=== PATIENT | female | born 1995 | race Caucasian/White ===

== ENCOUNTER 2021-05-29 18:45 | Emergency (ER) | payer OTHER ==
[~2021-05-29] VITALS: Ht 162 cm; Wt 70.0 kg
[2021-05-29 18:48] VITALS: BP 124/111
[2021-05-29] MEDS ORDERED: FAMOTIDINE 20MG/2ML IV (PEPCID) IVP STA (19:03)
[2021-05-29] MEDS ORDERED: ONDANSETRON 4 MG/2 ML (SDV) Z0FRAN IVP STA ×2 (19:03→20:55)
[2021-05-29] MEDS ORDERED: NS IV 1000 ML 1,000 ML IV STA (19:03)
--- NOTE | 2021-05-29 19:10 | ED General ---
General Chief Complaint: OB < 20 WEEKS Stated Complaint: VOMITING 10 WKS PREG Nursing Triage Note: Pt c/o n/v x few weeks and abd pain. Pt is 10weeks . Denies feeling dizzy/lightheaded or vaginal bleeding/discharge. Source of Information: Patient History of Present Illness Date Seen by Provider: May 29, 2021 Time Seen by Provider: 18:48 Initial Comments 26-year-old female presenting with complaints of epigastric pain and nausea and vomiting for the last few weeks. She states that she is 10 weeks and G1, P0. She just started seeing Dr. Hernandez with women[facility] out of [facility]. They prescribed Bonjesta for nausea and vomiting and she has been taking Pepcid AC. She states when she can keep the Pepcid AC down at does control her symptoms but she cannot always keep the Pepcid AC down. She did have issues with heartburn and reflux prior to getting . She denies feeling dizzy, lightheadedness, vaginal bleeding, vaginal discharge, pain with urination, diarrhea, fever, chills. She states that she called the on-call doctor for the OB group and. Said they could not really do anything else for her over the phone and if she was having more issues she would have to go to the emergency department in case she was dehydrated. Timing/Duration: Other (last few weeks but she felt it was worse in last 24 hours) Modifying Factors: worse with Eating Associated Systoms: No Chest Pain, No Cough, No Diaphoresis, No Fever/Chills, No Headaches, No Loss of Appetite, No Malaise; Nausea/Vomiting; No Rash, No Seizure, No Shortness of Air, No Syncope; Weakness Allergies and Home Medications Allergies Coded Allergies: No Known Drug Allergies (Unverified , 05/29/21) Patient Home Medication List Home Medication List Reviewed: Yes Review of Systems Review of Systems Constitutional: No chills, No dizziness, No fever, No malaise; weakness EENTM: no symptoms reported Respiratory: no symptoms reported Cardiovascular: no symptoms reported Gastrointestinal: see HPI Genitourinary: No dysuria, No frequency, No hematuria : Yes Expected Date of Delivery: Dec 20, 2021 Musculoskeletal: no symptoms reported Skin: no symptoms reported Psychiatric/Neurological: Anxiety Past Ywrwnas-Skvoet-Ztnfsa Hx Patient Social History Tobacco Use?: No Use of E-Cig and/or Vaping dev: No Substance use?: No Alcohol Use?: No Past Medical History Surgeries: Yes (Oral surgery) Respiratory: No Cardiac: No Neurological: No : Yes Expected Date of Delivery: Dec 20, 2021 Reproductive Disorders: No Genitourinary: No Gastrointestinal: No Musculoskeletal: No Endocrine: No HEENT: No Psychosocial: No Physical Exam Vital Signs Vital Signs - First Documented 05/29/21 18:48 Temp 36.8 Pulse 158 Resp 18 B/P (MAP) 124/111 (115) Pulse Ox 97 O2 Delivery Room Air Capillary Refill : Less Than 3 Seconds Height, Weight, BMI Height: '" Weight: lbs. oz. kg; 26.00 BMI Method: General Appearance: No Apparent Distress, Anxious HEENT: PERRL/EOMI, Pharynx Normal Neck: Full Range of Motion, Normal Inspection, Non Tender, Supple Respiratory: Chest Non Tender, Lungs Clear, Normal Breath Sounds, No Accessory Muscle Use, No Respiratory Distress Cardiovascular: Normal Peripheral Pulses, Tachycardia Gastrointestinal: Normal Bowel Sounds, No Pulsatile Mass, Soft; No Distended, No Guarding, No Rebound; Tenderness (epigastric) Rectal: Deferred Extremity: Normal Capillary Refill, Normal Inspection, No Pedal Edema Neurologic/Psychiatric: Alert, Oriented x3, cafe operator II-XII Norm as Tested Skin: Normal Color, Warm/Dry Progress/Results/Core Measures Suspected Sepsis SIRS Temperature: Pulse: 158 Respiratory Rate: 18 Laboratory Tests 05/29/21 19:10: White Blood Count 12.0H Blood Pressure 124 /111 Mean: 115 Laboratory Tests 05/29/21 19:10: Creatinine 0.46L, Platelet Count 337, Total Bilirubin 0.6 Results/Orders Lab Results Laboratory Tests Test 05/29/21 19:10 05/29/21 19:45 Range/Units White Blood Count 12.0 H 4.3-11.0 10^3/uL Red Blood Count 5.41 H 3.80-5.11 10^6/uL Hemoglobin 15.2 11.5-16.0 g/dL Hematocrit 42 35-52 % Mean Corpuscular Volume 78 L 80-99 fL Mean Corpuscular Hemoglobin 28 25-34 pg Mean Corpuscular Hemoglobin Concent 36 32-36 g/dL Red Cell Distribution Width 12.6 10.0-14.5 % Platelet Count 337 130-400 10^3/uL Mean Platelet Volume 10.0 9.0-12.2 fL Immature Granulocyte % (Auto) 0 % Neutrophils (%) (Auto) 73 42-75 % Lymphocytes (%) (Auto) 17 12-44 % Monocytes (%) (Auto) 9 0-12 % Eosinophils (%) (Auto) 0 0-10 % Basophils (%) (Auto) 0 0-10 % Neutrophils # (Auto) 8.7 H 1.8-7.8 X 10^3 Lymphocytes # (Auto) 2.0 1.0-4.0 X 10^3 Monocytes # (Auto) 1.1 H 0.0-1.0 X 10^3 Eosinophils # (Auto) 0.0 0.0-0.3 10^3/uL Basophils # (Auto) 0.0 0.0-0.1 10^3/uL Immature Granulocyte # (Auto) 0.1 0.0-0.1 10^3/uL Sodium Level 132 L 135-145 MMOL/L Potassium Level 3.2 L 3.6-5.0 MMOL/L Chloride Level 98 98-107 MMOL/L Carbon Dioxide Level 13 L 21-32 MMOL/L Anion Gap 21 H 5-14 MMOL/L Blood Urea Nitrogen 6 L 7-18 MG/DL Creatinine 0.46 L 0.60-1.30 MG/DL Estimat Glomerular Filtration Rate 136 BUN/Creatinine Ratio 13 Glucose Level 109 H 70-105 MG/DL Calcium Level 10.0 8.5-10.1 MG/DL Corrected Calcium 9.8 8.5-10.1 MG/DL Total Bilirubin 0.6 0.1-1.0 MG/DL Aspartate Amino Transf (AST/SGOT) 17 5-34 U/L Alanine Aminotransferase (ALT/SGPT) 18 0-55 U/L Alkaline Phosphatase 56 40-136 U/L Total Protein 8.1 6.4-8.2 GM/DL Albumin 4.3 3.2-4.5 GM/DL Lipase 41 8-78 U/L Urine Color YELLOW Urine Clarity CLEAR Urine pH 6.0 5-9 Urine Specific [place] >=1.030 1.016-1.022 Urine Protein 1+ H NEGATIVE Urine Glucose (UA) NEGATIVE NEGATIVE Urine Ketones 3+ H NEGATIVE Urine Nitrite NEGATIVE NEGATIVE Urine Bilirubin 1+ H NEGATIVE Urine Urobilinogen 0.2 < = 1.0 MG/DL Urine Leukocyte Esterase NEGATIVE NEGATIVE Urine RBC (Auto) 1+ H NEGATIVE Urine RBC NONE /HPF Urine WBC 25-50 H /HPF Urine Squamous Epithelial Cells >50 H /HPF Urine Crystals NONE /LPF Urine Bacteria LARGE H /HPF Urine Casts NONE /LPF Urine Mucus LARGE H /LPF Urine Yeast FEW H /HPF Urine Culture Indicated NO My Orders Orders - JOSE JUAN DU MD Comprehensive Metabolic Panel (05/29/21 19:03) Lipase (05/29/21 19:03) Ua Culture If Indicated (05/29/21 19:03) Ed Iv/Invasive Line Start (05/29/21 19:03) Cbc With Automated Diff (05/29/21 19:03) Ns Iv 1000 Ml (Sodium Chloride 0.9%) (05/29/21 19:03) Ondansetron Injection (Zofran Injectio (05/29/21 19:03) Famotidine Injection (Pepcid Injection) (05/29/21 19:03) Lactated Ringers (Lr 1000 Ml Iv Solution (05/29/21 20:12) Diphenhydramine Injection (Benadryl Inje (05/29/21 20:55) Ondansetron Injection (Zofran Injectio (05/29/21 20:55) Vital Signs/I&O 05/29/21 05/29/21 05/29/21 18:48 19:20 21:00 Temp 36.8 Pulse 158 97 97 Resp 18 15 15 B/P (MAP) 124/111 (115) 130/90 127/60 Pulse Ox 97 99 99 O2 Delivery Room Air Room Air Room Air Capillary Refill : Less Than 3 Seconds Blood Pressure Mean: 115 Progress Note #1: Progress Note Check labs and give IVF for hydration 1 L NS IV wide open. Zofran 4 mg IV for nausea, Pepcid 20 mg IV for epigastric pain/heartburn. Progress Note #2: Progress Note Labs show WBC count at upper limit of normal at 12 K and Hgb 15.2. Her Chemistry shows mild hypokalemia to 3.2, CO2 low at 13 with AG of 21. BUN of 6 and Cr of 0.46. UA was concentrated with SG >1.035. She had 1+Proteinuria, 3+Ketone, contaminated specimen with epithelial cells. Neg Nit and LE. Patient reports improved symptoms with treatment in ED. She is tolerating po here in the ED without emesis. Since her urine was concentrated will repeat IVF with a Liter of LR wide open and try po fluids with apple juice and popsicles since water was tasting bad due to stomach acid in mouth. Heartrate was significantly improved down to 80s sinus rhythm without ectopy. Progress Note #3: Progress Note Patient started to have some queasiness and feeling like she might throw up after taking the popsicle and drinking water. After her fluids had finished infusing for the second liter she was given a dose of Benadryl and has another dose of Zofran to try and help settle her stomach. Counseled to continue with medicines at home and consider adding on Tums to help with acid. Take the Pepcid twice a day to help with acid. Check with her primary about possibly adding an omeprazole or proton pump inhibitor. Consider an actual antiemetic beyond the medicine that she is taking currently. Counseled on follow-up and return precautions. Departure Impression Primary Impression: Vomiting during , antepartum Additional Impressions: Gastritis Qualified Codes: K29.00 - Acute gastritis without bleeding Dehydration during Disposition: HOME, SELF-CARE Condition: Stable Departure-Patient Inst. Decision time for Depature: 21:08 Referrals: TRINA APPLE MD (PCP/Family) Primary Care Physician Patient Instructions: Morning Sickness ED, Gastritis ED, Dehydration, Adult ED, Nausea and Vomiting of Add. Discharge Instructions: Increase the Pepcid to twice a day to help more with the stomach acid and irritation to stomach lining. You could also take Tums to help with acid and stomach pain. Consider Benadryl (Diphenhydramine) 25 mg up to every 4 hours as needed to help with nausea as well. If you continue to have issues check with your OB doctor and see if they want you to start taking Omeprazole (Prilosec) or another Proton Pump Inhibitor medicine to help more than the Pepcid. They may also try prescribing an additional medicine to help with nausea/vomiting. All discharge instructions reviewed with patient and/or family. Voiced understanding. JOSE JUAN DU MD May 29, 2021 19:10
[2021-05-29 19:21] LABS: HEMATOCRIT 42 % (35-52); HEMOGLOBIN 15.2 g/dL (11.5-16.0); MEAN CORPUSCULAR HEMOGLOBIN 28 pg (25-34); MEAN CORPUSCULAR HGB CONC 36 g/dL (32-36); MEAN CORPUSCULAR VOLUME 78 fL (80-99); NEUTROPHILS % (AUTO) 73 % (42-75); PLATELET COUNT 337 10^3/uL (130-400)
[2021-05-29 19:22] LABS: BASOPHILS % (AUTO) 0 % (0-10); EOSINOPHILS % (AUTO) 0 % (0-10); LYMPHOCYTES % (AUTO) 17 % (12-44); MONOCYTES # (AUTO) 1.1 X 10^3 (0.0-1.0); MONOCYTES % (AUTO) 9 % (0-12); NEUTROPHILS # (AUTO) 8.7 X 10^3 (1.8-7.8)
[2021-05-29 19:40] LABS: ALBUMIN 4.3 GM/DL (3.2-4.5); BILIRUBIN,TOTAL 0.6 MG/DL (0.1-1.0); CREATININE SERUM 0.46 MG/DL (0.60-1.30); POTASSIUM 3.2 MMOL/L (3.6-5.0); TOTAL PROTEIN 8.1 GM/DL (6.4-8.2)
[2021-05-29 19:56] LABS: BILIRUBIN,URINE 1+ (NEGATIVE); CLARITY,URINE CLEAR; COLOR,URINE YELLOW; GLUCOSE, URINE (UA) NEGATIVE (NEGATIVE); KETONES,URINE 3+ (NEGATIVE); LEUKOCYTE ESTERASE ,URINE NEGATIVE (NEGATIVE); NITRITE,URINE NEGATIVE (NEGATIVE); PROTEIN,URINE 1+ (NEGATIVE); WBC,URINE 25-50 /HPF
[2021-05-29 19:57] LABS: BACTERIA,URINE LARGE /HPF; SQUAMOUS EPITHELIAL CELL,UR >50 /HPF; YEAST,URINE FEW /HPF
[2021-05-29] MEDS ORDERED: LACTATED RINGERS 1,000 ML IV STA (20:12)
[2021-05-29] MEDS ORDERED: diphenhydrAMINE 50 MG/ML INJ (BENADRYL) IVP STA (20:55)
== END 2021-05-29 21:15 | disposition home or self-care (01) ==
LOC: ER FS 18:48
DX: O21.9 Vomiting of pregnancy, unspecified (principal); O99.611 Diseases of the digestive system complicating pregnancy, first trimester; K29.70 Gastritis, unspecified, without bleeding; E86.0 Dehydration; Z3A.10 10 weeks gestation of pregnancy
CPT/HCPCS: 36415; 80053; 81000; 83690; 85025

== ENCOUNTER 2023-03-15 18:21 | Emergency (ER) | payer BC, OTHER ==
--- NOTE | 2023-03-15 18:28 | ED GI ---
General Stated Complaint: VOMITING; BOWEL CONSTIPATION History of Present Illness Date Seen by Provider: Mar 15, 2023 Time Seen by Provider: 18:27 Initial Comments 27-year-old female who is [id number], and is 14 weeks , with SAMY of 09/10/2022, is here with complaints of constipation, nausea and vomiting which has been going on for the past week or so. Patient states that she took MiraLAX yesterday and today and she has been having diarrhea all day today. Patient has been having "little pellets of poop" over the past week or so. Patient has some epigastric burning and pain as well with acid reflux. Denies fever and chills, shortness of breath, cough, congestion. Patient had an ultrasound at 10 weeks which was normal. Patient has a history of normal and delivery. Allergies and Home Medications Allergies Coded Allergies: No Known Drug Allergies (Unverified , 05/29/21) Patient Home Medication List Home Medication List Reviewed: Yes Review of Systems Review of Systems Constitutional: no symptoms reported Gastrointestinal: Constipated, Nausea, Vomiting Past Ywfafet-Vqjpfu-Pprpnw Hx Immunizations Up To Date First/Initial COVID19 Vaccinat: denies Past Medical History Surgeries: Yes (Oral surgery) Respiratory: No Cardiac: No Neurological: No Reproductive Disorders: No Genitourinary: No Gastrointestinal: No Musculoskeletal: No Endocrine: No HEENT: No Psychosocial: No Physical Exam Vital Signs Vital Signs - First Documented 03/15/23 18:25 Temp 36.7 Pulse 120 Resp 18 B/P (MAP) 129/83 (98) Pulse Ox 97 O2 Delivery Room Air Capillary Refill : Height/Weight/BMI Height: '" Weight: lbs. oz. kg; 26.00 BMI Method: General Appearance: WD/WN, no apparent distress HEENT: PERRL/EOMI Neck: non-tender, full range of motion Respiratory: lungs clear Cardiovascular: regular rate, rhythm, no edema Gastrointestinal: normal bowel sounds, soft, no organomegaly, tenderness (Mild tenderness in epigastric region) Extremities: normal range of motion Back: normal inspection, no CVA tenderness Pelvic: normal external exam Neurologic/Psychiatric: alert, normal mood/affect, oriented x 3 Skin: normal color, other (Dry mucous membranes) Lymphatic: no adenopathy Progress/Results/Core Measures Results/Orders Lab Results Laboratory Tests Test 03/15/23 18:30 Range/Units White Blood Count 10.9 4.3-11.0 10^3/uL Red Blood Count 5.76 H 3.80-5.11 10^6/uL Hemoglobin 15.9 11.5-16.0 g/dL Hematocrit 48 35-52 % Mean Corpuscular Volume 83 80-99 fL Mean Corpuscular Hemoglobin 28 25-34 pg Mean Corpuscular Hemoglobin Concent 33 32-36 g/dL Red Cell Distribution Width 13.3 10.0-14.5 % Platelet Count 324 130-400 10^3/uL Mean Platelet Volume 9.8 9.0-12.2 fL Immature Granulocyte % (Auto) 1 % Neutrophils (%) (Auto) 81 H 42-75 % Lymphocytes (%) (Auto) 13 12-44 % Monocytes (%) (Auto) 5 0-12 % Eosinophils (%) (Auto) 0 0-10 % Basophils (%) (Auto) 0 0-10 % Neutrophils # (Auto) 8.9 H 1.8-7.8 10^3/uL Lymphocytes # (Auto) 1.5 1.0-4.0 10^3/uL Monocytes # (Auto) 0.5 0.0-1.0 10^3/uL Eosinophils # (Auto) 0.0 0.0-0.3 10^3/uL Basophils # (Auto) 0.0 0.0-0.1 10^3/uL Immature Granulocyte # (Auto) 0.1 0.0-0.1 10^3/uL Urine Color YELLOW Urine Clarity SL CLOUDY Urine pH 6.0 5-9 Urine Specific [place] >=1.030 1.016-1.022 Urine Protein 1+ H NEGATIVE Urine Glucose (UA) NEGATIVE NEGATIVE Urine Ketones 3+ H NEGATIVE Urine Nitrite NEGATIVE NEGATIVE Urine Bilirubin 1+ H NEGATIVE Urine Urobilinogen 0.2 < = 1.0 MG/DL Urine Leukocyte Esterase NEGATIVE NEGATIVE Urine RBC (Auto) 1+ H NEGATIVE Urine RBC 2-5 H /HPF Urine WBC 0-2 /HPF Urine Squamous Epithelial Cells 10-25 H /HPF Urine Crystals NONE /LPF Urine Bacteria FEW H /HPF Urine Casts NONE /LPF Urine Mucus MODERATE H /LPF Urine Culture Indicated NO Sodium Level 133 L 135-145 MMOL/L Potassium Level 4.1 3.6-5.0 MMOL/L Chloride Level 101 98-107 MMOL/L Carbon Dioxide Level 13 L 21-32 MMOL/L Anion Gap 19 H 5-14 MMOL/L Blood Urea Nitrogen 5 L 7-18 MG/DL Creatinine 0.50 L 0.60-1.30 MG/DL Estimat Glomerular Filtration Rate 133 BUN/Creatinine Ratio 10 Glucose Level 83 70-105 MG/DL Calcium Level 9.8 8.5-10.1 MG/DL Corrected Calcium 9.6 8.5-10.1 MG/DL Magnesium Level 1.8 1.6-2.4 MG/DL Total Bilirubin 0.4 0.1-1.0 MG/DL Aspartate Amino Transf (AST/SGOT) 16 5-34 U/L Alanine Aminotransferase (ALT/SGPT) 10 0-55 U/L Alkaline Phosphatase 69 40-136 U/L Total Protein 8.6 H 6.4-8.2 GM/DL Albumin 4.3 3.2-4.5 GM/DL Lipase 38 8-78 U/L My Orders Orders - GEOVANNA VELASQUEZ MD Cbc And Automated Diff (03/15/23 18:40) Comprehensive Metabolic Panel (03/15/23 18:40) Lipase (03/15/23 18:40) Magnesium (03/15/23 18:40) Ua Culture If Indicated (03/15/23 18:40) Ondansetron Injection (Ondansetron Inj (03/15/23 18:45) Ed Iv/Invasive Line Start (03/15/23 18:40) Ns Iv 1000 Ml (Ns Iv 1000 Ml) (03/15/23 18:45) Famotidine Injection (Famotidine Injec (03/15/23 18:41) Diphenhydramine Injection (Diphenhydram (03/15/23 20:00) Medications Given in ED Current Medications Medications Dose Ordered Sig/Hussain Route Start Time Stop Time Status Last Admin Dose Admin Ondansetron HCl 4 mg ONCE ONCE IVP 03/15/23 18:45 03/15/23 18:46 DC 03/15/23 18:54 4 MG Vital Signs/I&O 03/15/23 18:25 Temp 36.7 Pulse 120 Resp 18 B/P (MAP) 129/83 (98) Pulse Ox 97 O2 Delivery Room Air Progress Progress Note : Progress Note CONSTIPATION/ DEHYDRATION: - Constipation appears to have resolved - CBC/ CMP: unremarkable except for mildly low Na of 133 - UA: positive for ketones, no infection - Lipase: negative - Pepcid 20mg iv/ Zofran 4mg iv/ NS IVF bolus STAT - Added Benadryl 25mg iv later for nausea - Advised adequate hydration with 8 glasses of water a day, high fiber diet, prunes - Follow up with OB/ SUBSTANCE ABUSE RN within the next 3 to 5 days -The patient was seen in the ED, and treated appropriately to presentation at a specific point in time. Patient is informed that there is a possibility that disease and illness can evolve and change in acuity rapidly or slowly after patient is discharged from the ER. Precautionary advice given to the patient for immediate return to ER if symptoms worsen or do not resolve, and to seek emergency care sooner rather than later. Pt also advised on the importance of PC P follow up and compliance with management and follow up plan with PCP and/or specialist, as this is part of the management plan. Pt verbally expressed understanding. Departure Impression Primary Impression: Dehydration Additional Impression: Constipation Disposition: 01 HOME, SELF-CARE Condition: Improved Departure-Patient Inst. Referrals: TRINA APPLE MD (PCP/Family) Primary Care Physician Patient Instructions: Dehydration, Adult (DC), Why Water Is Important to Health, Morning Sickness (DC), Constipation, Adult ED Add. Discharge Instructions: - Added Benadryl 25mg iv later for nausea - Advised adequate hydration with 8 glasses of water a day, high fiber diet, prunes - Follow up with OB/ SUBSTANCE ABUSE RN within the next 3 to 5 days GEOVANNA VELASQUEZ MD Mar 15, 2023 18:28
[2023-03-15] MEDS ORDERED: FAMOTIDINE INJ 20MG/2ML VIAL IV STA (18:41)
[2023-03-15] MEDS ORDERED: ONDANSETRON INJECTION 4 MG/2 ML (SDV) IVP ONE (18:45)
[2023-03-15] MEDS ORDERED: NS IV 1000 ML 1,000 ML IV SCH (18:45)
[2023-03-15 19:06] LABS: BASOPHILS % (AUTO) 0 % (0-10); EOSINOPHILS % (AUTO) 0 % (0-10); HEMATOCRIT 48 % (35-52); HEMOGLOBIN 15.9 g/dL (11.5-16.0); LYMPHOCYTES # (AUTO) 1.5 10^3/uL (1.0-4.0); LYMPHOCYTES % (AUTO) 13 % (12-44); MEAN CORPUSCULAR HEMOGLOBIN 28 pg (25-34); MEAN CORPUSCULAR HGB CONC 33 g/dL (32-36); MEAN CORPUSCULAR VOLUME 83 fL (80-99); MEAN PLATELET VOLUME 9.8 fL (9.0-12.2); MONOCYTES # (AUTO) 0.5 10^3/uL (0.0-1.0); MONOCYTES % (AUTO) 5 % (0-12); NEUTROPHILS # (AUTO) 8.9 10^3/uL (1.8-7.8); NEUTROPHILS % (AUTO) 81 % (42-75); PLATELET COUNT 324 10^3/uL (130-400); WHITE BLOOD COUNT 10.9 10^3/uL (4.3-11.0)
[2023-03-15 19:10] LABS: CLARITY,URINE SL CLOUDY; COLOR,URINE YELLOW; GLUCOSE, URINE (UA) NEGATIVE (NEGATIVE); KETONES,URINE 3+ (NEGATIVE); LEUKOCYTE ESTERASE ,URINE NEGATIVE (NEGATIVE); NITRITE,URINE NEGATIVE (NEGATIVE); PROTEIN,URINE 1+ (NEGATIVE)
[2023-03-15 19:25] LABS: BACTERIA,URINE FEW /HPF; BILIRUBIN,URINE 1+ (NEGATIVE); WBC,URINE 0-2 /HPF
[2023-03-15 19:26] LABS: CALCIUM 9.8 MG/DL (8.5-10.1); CREATININE SERUM 0.5 MG/DL (0.60-1.30); POTASSIUM 4.1 MMOL/L (3.6-5.0)
[2023-03-15 19:27] LABS: ALBUMIN 4.3 GM/DL (3.2-4.5); BILIRUBIN,TOTAL 0.4 MG/DL (0.1-1.0); MAGNESIUM 1.8 MG/DL (1.6-2.4); TOTAL PROTEIN 8.6 GM/DL (6.4-8.2)
[2023-03-15] MEDS ORDERED: diphenhydrAMINE INJ 50 MG/ML VIAL IVP ONE (20:00)
[2023-03-15 20:20] VITALS: BP 121/78
== END 2023-03-15 20:20 | disposition home or self-care (01) ==
LOC: EDUNIT# 18:21 → ER FS 18:23
DX: O99.612 Diseases of the digestive system complicating pregnancy, second trimester (principal); K59.00 Constipation, unspecified; O99.282 Endocrine, nutritional and metabolic diseases complicating pregnancy, second trimester; E86.0 Dehydration; Z3A.14 14 weeks gestation of pregnancy
CPT/HCPCS: 36415; 80053; 81000; 83690; 83735; 85025